=== PATIENT | male | born 1985 | race Caucasian/White ===

== ENCOUNTER 2016-07-26 10:48 | Day surgery (SDC) | payer OTHER ==
[~2016-07-26] VITALS: Ht 172.7 cm; Wt 70.3 kg
[~2016-07-26 10:48] MED LIST: ANUSOL-HC25 MG RE; BACTRIM DS1 TAB PO; CEPHALEXIN500 MG PO; CIPROFLOXACN500 MG PO; FLEXERIL PO; LORTAB 10-325 M1 TAB PO; LORTAB 7.57.5 MG PO; LORTAB5 PO; METOCLOPRAM10 MG OR; NAPROSYN500 MG PO; NO; No Medications; PREVACID30 M1 PO; PREVACID30 M2 OR; ULTRAM50 M1 PO; ZOFRAN ODT8 MG PO
[2016-07-26 11:43] LABS: ACT PARTIAL THROMBO TIME 26.4 SECONDS (20.0-32.5); PROTHROMBIN TIME 10.6 SECONDS (9.0-12.5)
[2016-07-26 11:45] LABS: HEMATOCRIT 41.5 % (39.0-50.0); HEMOGLOBIN 13.5 g/dl (14.0-18.0); MEAN CELL VOLUME 93.5 fL CALC (80.0-100.0); MEAN CORPUSCULAR HGB 30.4 pG CALC (26.0-32.0); MEAN CORPUSCULAR HGB CONC 32.5 g/L CALC (32.0-36.0); NEUT# 2.38 thou/uL (1.82-7.42); RED BLOOD COUNT 4.44 mill/uL (4.70-6.10); RED CELL DISTRI WIDTH 13.4 % (11.5-15.5)
[2016-07-26 11:51] LABS: ANION GAP 14 (6-22 (CALC)); BUN 11 mg/dL (9-20); BUN/CREATININE RATIO 14 (12-20 (CALC)); CALCIUM 9.3 mg/dL (8.4-10.2); CARBON DIOXIDE 29 mmol/l (22-30); CHLORIDE 105 mmol/l (95-108); CREATININE 0.8 mg/dL (0.7-1.3); GFR > 60 ML/MIN (>=60 (CALC)); GFR FOR AFR.AMER. > 60 ML/MIN (>=60 (CALC)); GLUCOSE 89 mg/dL (75-110); POTASSIUM 4.3 mmol/l (3.5-5.1); SODIUM 143 mmol/l (137-146)
[2016-07-26 16:50] VITALS: BP 119/62
[2016-07-26] MEDS ORDERED: NORCO1 TA2 PO (16:53)
== END 2016-07-26 17:05 | DRG 712 ==
LOC: ORM 10:48
PROVIDERS: ATTEND Urology
PROC: 0VTB0ZZ Resection of Left Testis, Open Approach (ICD-10-PCS; principal; 2016-07-26)
PROC: 0VBG0ZX Excision of Left Spermatic Cord, Open Approach, Diagnostic (ICD-10-PCS; 2016-07-26)
DX: N50.89 Other specified disorders of the male genital organs (principal); C62.12 Malignant neoplasm of descended left testis
CPT/HCPCS: J2710